=== PATIENT | female | born 1955 | race Caucasian/White ===

== ENCOUNTER 2023-09-06 15:42 | Emergency (ER) | payer MEDICARE ==
[~2023-09-06] VITALS: Ht 170.2 cm; Wt 61.8 kg
[2023-09-06 16:04] VITALS: BP 136/91; PULSE 98; RESP 18; TEMP 98; O2SAT 99
== END 2023-09-06 23:16 | disposition left against medical advice (07) ==
LOC: ER 15:43
DX: R10.9 Unspecified abdominal pain (principal); Z53.21 Procedure and treatment not carried out due to patient leaving prior to being seen by health care provider
CPT/HCPCS: 85025; 99281

== ENCOUNTER 2023-12-21 12:22 | Outpatient (CLI) | payer MEDICARE, BC | END 2023-12-21 23:59 | disposition home or self-care (01) | LOC: RAD 12:22 | PROVIDERS: ATTEND Urology | DX: N20.0 Calculus of kidney (principal); K57.30 Diverticulosis of large intestine without perforation or abscess without bleeding; R31.0 Gross hematuria | CPT/HCPCS: 74176; 76770 ==

== ENCOUNTER 2024-01-20 07:16 | Day surgery (SDC) | payer MEDICARE, BC ==
[2024-01-18 14:40] LABS: BASOPHILS % (AUTO) 0.3 % (0-1); EOSINOPHILS % (AUTO) 0.2 % (0-6); LYMPHOCYTES # (AUTO) 1.2 X10'3 (1.1-4.8); LYMPHOCYTES % (AUTO) 14.6 % (21-51); MEAN CORPUSCULAR HEMOGLOBIN 28.3 PG (27.0-31.0); MEAN CORPUSCULAR HGB CONC 32.6 g/dL (33.0-36.5); MEAN CORPUSCULAR VOLUME 86.8 FL (78-98); MEAN PLATELET VOLUME 8.3 FL (7.4-10.4); MONOCYTES # (AUTO) 0.5 X10'3 (0-0.9); MONOCYTES % (AUTO) 6.3 % (2-12); NEUTROPHILS # (AUTO) 6.3 X10'3 (1.8-7.7); NEUTROPHILS % (AUTO) 78.6 % (42-75); PRE OP HEMATOCRIT 37.9 % (35.0-45.0); PRE OP HEMOGLOBIN 12.4 g/dL (12.0-16.0); PRE OP PLATELET COUNT 298 X10'3 (140-440); RED BLOOD COUNT 4.36 X10'6 (4.20-5.60); RED CELL DISTRIBUTION WIDTH 14.7 % (11.5-14.5)
[2024-01-18 15:08] LABS: ALBUMIN 3.5 G/DL (3.4-5.0); ALKALINE PHOSPHATASE 30 IU/L (46-116); BLOOD UREA NITROGEN 23 MG/DL (7-18); BUN/CREATININE RATIO 34.8 (10.0-20.0); CALCIUM 8.8 MG/DL (8.5-10.1); CHLORIDE 104 MMOL/L (99-107); CREATININE 0.66 MG/DL (0.40-0.90); PRE OP ALT 13 U/L (30-65); PRE OP ANION GAP 14 (8-16); PRE OP AST 6 U/L (10-37); PRE OP BILIRUB, TOTAL 0.3 MG/DL (0.0-1.0); PRE OP GLUCOSE 102 MG/DL (70-104); PRE OP POTASSIUM 3.4 MMOL/L (3.4-5.1); PRE OP SODIUM 141 MMOL/L (135-145); TOTAL CARBON DIOXIDE 22.9 MMOL/L (24-32); eGFR 89 ML/MIN
[2024-01-18 15:17] LABS: BILIRUBIN,URINE NEGATIVE (Neg); CLARITY,URINE SLIGHTLY CLOUDY (Clear); COLOR,URINE YELLOW (Yellow); GLUCOSE, URINE NEGATIVE (Neg); KETONES,URINE 15 mg/dl (Neg); LEUKOCYTE ESTERASE ,URINE NEGATIVE (Neg); NITRITES, URINE NEGATIVE (Neg); OCCULT BLOOD,URINE TRACE-LYSED (Neg); PH,URINE 5.5 (4.8-8.0); PROTEIN,URINE TRACE mg/dl (Neg); UROBILINOGEN,URINE 0.2 E.U/dL (0.2-1.0)
[2024-01-18 15:31] LABS: UA COLLECTION TYPE NON-SPECIFIED
[2024-01-18 15:32] LABS: SQUAMOUS EPITHELIAL CELL,UR FEW /LPF (FEW)
[2024-01-18 15:33] LABS: WBC,URINE 20-30 /HPF (0-4)
[2024-01-18 15:36] LABS: BACTERIA,URINE 1+ /HPF (Neg); RBC,URINE 0-2 /HPF (0-2)
[2024-01-18 15:37] LABS: MUCUS STRANDS FEW /LPF (Neg)
[~2024-01-20] VITALS: Ht 170.2 cm; Wt 63.2 kg
[2024-01-20] MEDS: ceFOXitin 2GM-NS 100mL ADDvant 100 ML IV ONE (05:30)
[~2024-01-20 07:16] MED LIST: CHOL100046 PO; CYAN50009 PO
[2024-01-20 08:15] VITALS: BP 130/68; PULSE 75; RESP 16; TEMP 96.8; O2SAT 100
[2024-01-20] MEDS: famotidine 20mg tablet PO ONE (08:15)
[2024-01-20] MEDS: ringers solution, lacted 1,000 ML IV SCH (08:16)
[2024-01-20] MEDS ORDERED: sevoflurane 250ml liquid IH ONE (09:28)
[2024-01-20] MEDS ORDERED: ondansetron/PF 4mg/2ml inj IV PRN (09:30)
[2024-01-20] MEDS ORDERED: HYDROmorphone/PF 0.2 MG/ML SYRINGE IV PRN ×2 (09:30)
[2024-01-20] MEDS ORDERED: hydrALAZINE 20mg/ml inj. IV PRN (09:30)
[2024-01-20] MEDS ORDERED: ringers solution, lacted 1,000 ML IV SCH (09:30)
[2024-01-20] MEDS ORDERED: meperidine/PF 25mg/ml syringe IV PRN (09:30)
[2024-01-20] MEDS ORDERED: acetaminophen 1,000mg/100ml IV 100 ML IV ONE (09:30)
[2024-01-20] MEDS ORDERED: proCHLORperazine 10 MG/2 ml inj IV PRN (09:30)
[2024-01-20] MEDS ORDERED: morphine 4 MG/ML inj SYRINge IV PRN (09:30)
[2024-01-20] MEDS ORDERED: morphine 2 MG/ML inj. syringe IV PRN (09:30)
[2024-01-20] MEDS ORDERED: labetalol 20mg/4ml (5mg/ml) syringe IV PRN (09:30)
[2024-01-20] MEDS ORDERED: fentaNYL/PF 50MCG/1 ML 2ML syringe ONE (09:35)
[2024-01-20] MEDS ORDERED: midazolam 1 mg/ML 2ml injection ONE (09:42)
[2024-01-20] MEDS ORDERED: LIDOcaine 2% (20mg/ml) 5ml vial ONE (09:45)
[2024-01-20] MEDS ORDERED: propofol inj 20 ML IV ONE (09:45)
[2024-01-20] MEDS ORDERED: dexamethasone sod phosphate 4mg/ml inj. ONE (09:46)
[2024-01-20] MEDS ORDERED: ondansetron/PF 4mg/2ml inj ONE (09:46)
[2024-01-20 10:16] VITALS: BP 127/65; PULSE 86; RESP 16; O2SAT 100
[2024-01-20 10:30] VITALS: BP 119/66; PULSE 73; RESP 11; O2SAT 97
[2024-01-20 10:40] VITALS: BP 119/68; PULSE 69; RESP 11; O2SAT 97
[2024-01-20 10:50] VITALS: BP 119/63; PULSE 67; RESP 12; O2SAT 100
[2024-01-20 11:00] VITALS: BP 123/67; PULSE 71; RESP 12; O2SAT 100
== END 2024-01-20 11:16 | disposition home or self-care (01) ==
LOC: PAS 07:16
PROVIDERS: ATTEND Obstetrics & Gynecology Obstetrics
DX: N85.00 Endometrial hyperplasia, unspecified (principal); G43.909 Migraine, unspecified, not intractable, without status migrainosus; Z90.721 Acquired absence of ovaries, unilateral; Z87.440 Personal history of urinary (tract) infections; Z87.891 Personal history of nicotine dependence; Z98.890 Other specified postprocedural states; Z79.899 Other long term (current) drug therapy
CPT/HCPCS: 36415; 58558; 80053; 81001; 82948; 85025; 86885; 86900; 86901; 87077; 87088; 87186; J0694; J1100; J2250; J2405; J2704; J3010; J3490; J7120; Z7512; A4355; A4618; A6258; A7000; J7030